=== PATIENT | female | born 1995 | race Caucasian/White ===

== ENCOUNTER → 2018-07-20 10:55 | Outpatient (CLI) | payer OTHER, SELFPAY ==
[2018-07-21 16:41] LABS: HPV Reflexed? NOT INDICATED
== END ==
PROVIDERS: Family Provider Pediatrics; PCP Pediatrics; Visit Provider Obstetrics & Gynecology
DX: Z12.4 Encounter for screening for malignant neoplasm of cervix (principal); Z01.419 Encounter for gynecological examination (general) (routine) without abnormal findings
CPT/HCPCS: 88175; G0145

== ENCOUNTER 2019-08-26 14:00 | Emergency (ER) | payer OTHER, SELFPAY ==
[2019-08-26 14:01] VITALS: BP 124/76; PULSE 110; RESP 16; TEMP 38.2; BMI 22.1
[2019-08-26] MEDS: 0.9% Normal Saline 1,000 ML 1000 ML IV (14:25)
--- NOTE | 2019-08-26 14:28 | ED.VIS.GEN ---
History of Present Illness Chief Complaint: Complaint Informant: Patient Narrative: Patient presents to the ED with concern for worsening urinary tract infection. Yesterday, she was seen by her PCP and diagnosed with urinary tract infection. She was placed on Cipro. She is taken 3 doses. She states that last night, she developed right sided lumbar pain and today it has traveled more to the right flank area. She reports associated nausea with no emesis. She also reports associated fever, chills, and additional myalgias. She did take some Aleve yesterday but is taking no additional medications today other than the antibiotic. Past Medical History - Allergies and Home Meds Allergies/Adverse Reactions: Allergies No Known Allergies Allergy (Verified 08/26/19 14:04) Primary Care Physician: Marlin Bui MD [Primary Care Provider] - Smoking Status: Former smoker Review of Systems General: Reports: Chills, Fever. Denies: Sweats Eyes: Denies: Visual changes - bilaterally, Diplopia ENT: Denies: Rhinorrhea, Sore throat Cardiovascular: Denies: Chest pain, Palpitations Respiratory: Denies: Dyspnea, Cough, Dyspnea on exertion Gastrointestinal: Reports: Nausea. Denies: Abdominal pain, Vomiting, Diarrhea, Melena, Hematochezia Genitourinary: Reports: Dysuria, Frequency, - - Right flank and lumbar pain.. Denies: Hematuria Musculoskeletal: Denies: Back pain, Extremity Pain Skin: Denies: Rash, Wounds Neurological: Denies: Headache, Weakness, Numbness Physical Exam Vital Signs/Narrative: Vital Signs Temp Pulse Resp BP 08/26/19 14:01 100.8 F H 110 H 16 124/76 H General: Well nourished, Well developed, No Acute Distress Head: Normocephalic, Atraumatic Eyes: Perrl, EOMI ENT: Moist mucous membranes, No rhinorrhea Neck: Supple, Nontender Cardiovascular: Regular rate, Regular rhythm, No murmurs Respiratory: No distress, CTA bilaterally, Chest nontender Abdomen: Soft, Nondistended, Normal bowel sounds, Tender - Right upper quadrant. Negative for: Guarding, Rebound tenderness Back: Nontender, Normal Inspection. Negative for: CVA tenderness Extremities: Nontender, No edema Skin: Normal color, No rash Neurological: Alert, Oriented x3, Cranial nerves II-XII grossly intact, Normal Strength, Normal Sensation Psychological: Normal affect, Normal Mood Diagnostic/Tx/Re-eval - Medical Decision Making Patient presents with urinary symptoms, back pain, fever, chills. She is febrile here with a temperature of 100.8 ?F. She is mildly tachycardic with a heart rate of 110 bpm. She is not hypotensive. She appears well. She really does not have any CVA tenderness on physical exam and has more right upper quadrant abdominal tenderness to palpation. She is given IV fluids and Toradol for symptomatic relief. CBC and BMP are unremarkable. UA does indicate some evidence of urinary tract infection. Given the patient's description of symptoms, she does sound like an early pyelonephritis. She is given a gram of Rocephin here. Urine culture is pending. She will be changed to a course of Bactrim. She was advised to follow-up with PCP. She was educated on signs/symptoms to return to the ED. She is provided discharge instructions and agreeable to plan. Impression: Urinary tract infection, potential early pyelonephritis. Disposition: Home stable. ED Disposition - Plan for ED Patient: Disposition: Home or Assisted Living Diagnosis: Pyelonephritis Instructions: Pyelonephritis Prescriptions: Smz/Tmp Ds [Bactrim Ds] 1 tab PO BID #14 tab Prescription Printed Referrals: Marlin Bui MD [Primary Care Provider] - Additional Instructions: Discontinue your ciprofloxacin and start taking Bactrim.
[2019-08-26 14:29] LABS: Absolute Lymphocyte Count 1.54 X10^3/uL (0.83-4.51); Absolute Neutrophil Count 10.5 X10^3/uL (2.0-7.7); Basophil# 0.03 X10^3/uL; Basophil% 0.2 % (0-1); Eosinophil# 0.01 X10^3/uL; Eosinophils% 0.1 % (0-5); Hematocrit 42.8 % (37-47); Hemoglobin 14.2 g/dL (12.0-15.0); Lymphocyte # 1.54 X10^3/ul (4.0); Lymphocyte % 10.9 % (19-41); Mean Corp Hgb Conc 33.2 g/dL (32-36); Mean Corpuscular Hgb 31.1 pg (27.0-32.0); Mean Corpuscular Volume 93.9 fL (81-99); Mean Platelet Vol. 8.9 fl (6.2-12.0); Monocyte# 2.02 X10^3/uL; Monocyte% 14.3 % (0-10); NRBC Flagged by Analyzer 0 % (0-5); Neutrophil # 10.46 X10^3/uL (2.7-7.7); POSITIVE DIFFERENTIAL YES; Platelet Count 216 K/mm3 (150-450); RBC Distribution Width CV 11.8 % (11.6-14.6); RBC Distribution Width SD 40.9 fl (35.1-43.9); Red Blood Count 4.56 M/mm3 (4.2-5.4); White Blood Count 14.1 K/mm3 (4.4-11.0)
[2019-08-26 14:31] LABS: Differential Indicated SCAN CRITERIA MET
[2019-08-26 14:43] LABS: Color, Urine Yellow (Yellow); Glucose, Dipstick Normal (Normal); Ketone-Dipstick 50 mg/dl (Negative); Leukocyte Esterase-Dipstick 25 /ul (Negative); Nitrite-Dipstick Negative (Negative); Occult Blood-Urine 25 /ul (Negative); Protein-Dipstick 15 mg/dl (Negative); Specific Gravity, Urine 1.015 (1.002-1.030); Urine Bilirubin Dipstick Negative (Negative); Urine Clarity Sl. Cloudy (Clear); Urine Urobilinogen Normal (Normal)
[2019-08-26 14:46] LABS: Internal QC Validated? YES +Cl - CLEAR BKGD; Pregnancy, Urine Negative Negative
[2019-08-26] MEDS: Ketorolac 15 MG/ML Vial IV (14:47)
[2019-08-26 14:51] LABS: AST(SGOT) 13 U/L (15-37); Alanine Aminotransfer ALT/SGPT 17 U/L (13-56); Alkaline Phosphatase 53 U/L (45-117); Anion Gap 8 (5-15); BUN 8 mg/dL (7-18); BUN/Creat Ratio 10.5 RATIO (10-20); Calcium,Total 8.8 mg/dL (8.5-10.1); Chloride 104 mmol/L (98-107); Creatinine, Serum 0.76 mg/dL (0.55-1.02); EST Glomerular Filtration Rate 101 mL/min (>60); Est Glom Filt Rate - Afr Amer 122 mL/min (>60); Estimated Creatinine Clearance 96.05 ml/min; Globulin 4.1 g/dL (2.2-4.2); Glucose 87 mg/dL (74-106); Lipase 59 U/L (73-393); Potassium 3.5 mmol/L (3.5-5.1); Protein, Total 8.1 g/dL (6.4-8.2); Sodium Level 139 mmol/L (136-145)
[2019-08-26 14:57] LABS: Red Blood Cells-Urine 0-5 SEEN /hpf (0-5); White Blood Cells 5-10 SEEN /hpf (0-5)
[2019-08-26 14:58] LABS: Squamous Epithelial Cells - UA 10-25 SEEN /hpf (5-10)
[2019-08-26 14:59] LABS: Bacteria 1+ /hpf (None Seen); Mucous, Urine 2+ /hpf (<or=2+)
[2019-08-26 15:04] VITALS: BP 112/67; PULSE 103; RESP 18; TEMP 37.5; O2SAT 98
[2019-08-26] MEDS: Ceftriaxone 1 GM/50 ML BAG IV (15:21)
[2019-08-26 15:33] LABS: Differential Comment SCANNED
[2019-08-26 16:18] VITALS: PULSE 99; RESP 16; TEMP 37.1; O2SAT 99
[2019-08-29 09:57] LABS: Pathologist Review Reviewed
== END 2019-08-26 16:19 | disposition home or self-care (01) ==
PROVIDERS: Emergency Provider Physician Assistant; Family Provider Pediatrics; PCP Pediatrics
DX: N12 Tubulo-interstitial nephritis, not specified as acute or chronic (principal); Z87.891 Personal history of nicotine dependence
CPT/HCPCS: 80048; 80076; 81001; 81025; 83690; 85025; 96361; 96365; 96375; 99283; J7030; J7040